=== PATIENT | male | born 1945 | race Caucasian/White ===

== ENCOUNTER → 2017-10-11 10:26 | Outpatient (CLI) | payer OTHER | END | disposition home or self-care (01) | LOC: D.RT 10:26 | DX: C34.90 Malignant neoplasm of unspecified part of unspecified bronchus or lung (principal) ==

== ENCOUNTER → 2017-10-25 09:56 | Outpatient (CLI) | payer OTHER | END | disposition home or self-care (01) | LOC: D.RT 09:56 | DX: R06.02 Shortness of breath (principal) ==